=== PATIENT | female | born 1980 | race Caucasian/White ===

== ENCOUNTER 2018-11-27 14:52 | Emergency (ER) | payer SELFPAY ==
[~2018-11-27] VITALS: Ht 162.5 cm; Wt 62.6 kg
[2018-11-27] MEDS ORDERED: ZITHROMAX500 MG PO (15:30)
== END 2018-11-27 15:33 | disposition home or self-care (01) ==
LOC: ED 14:52
DX: J03.90 Acute tonsillitis, unspecified (principal); Z91.018 Allergy to other foods

== ENCOUNTER 2019-01-17 19:51 | Emergency (ER) | payer SELFPAY ==
[~2019-01-17] VITALS: Wt 61.2 kg
[~2019-01-17 19:51] MED LIST: ZITHROMAX500 MG PO
[2019-01-17 20:11] LABS: BASO # 0.1 10*3/uL (0.0-0.1); BASO % 1.1 % (0.0-1.0); EOS # 0.1 10*3/uL (0.0-0.4); HEMATOCRIT 44.5 % (37.0-47.0); HEMOGLOBIN 14.4 g/dl (12.0-16.0); LYMPH # 2.2 10*3/uL (1.3-4.4); LYMPH % 31.3 % (27.0-41.0); MEAN CELL VOLUME 97.8 fl (81.0-99.0); MEAN CORPUSCULAR HGB 31.6 pg (27.0-31.0); MEAN CORPUSCULAR HGB CONC 32.4 g/dl (33.0-37.0); MEAN PLATELET VOLUME 9.3 fl (9.6-12.3); MONO # 0.7 10*3/uL (0.1-1.0); MONO % 10.2 % (3.0-9.0); NEUT # 3.9 10*3/uL (2.3-7.9); NEUT % 56.3 % (47.0-73.0); PLATELET COUNT AUTOMATED 308 10*3/uL (130-400); RED BLOOD COUNT 4.55 10*6/uL (4.10-5.10); RED CELL DISTRI WIDTH 13.8 % (0-14.5)
[2019-01-17 20:28] LABS: ALBUMIN 3.6 gm/dl (3.1-4.5); BUN 5 mg/dl (7-24); CHLORIDE 108 mmol/L (98-107); POTASSIUM 3.7 mmol/L (3.5-5.1); SGOT/AST 12 IU/L (3-35); SGPT/ALT 16 U/L (12-78); SODIUM 139 mmol/L (136-145)
[2019-01-17 20:30] LABS: ALKALINE PHOSPHATASE 66 U/L (45-117); TOTAL PROTEIN 7.5 gm/dL (6.4-8.2)
[2019-01-17 20:34] LABS: ACETAMINOPHEN (TYLENOL) < 5.0 ug/ml (10-30)
[2019-01-17 20:38] LABS: BILIRUBIN NEGATIVE (NEGATIVE); BLOOD TRACE-LYSED (NEGATIVE); CLARITY CLEAR (CLEAR); COLOR YELLOW (YELLOW); GLUCOSE NEGATIVE (NEGATIVE); KETONE NEGATIVE (NEGATIVE); LEUKO ESTERASE TRACE (NEGATIVE); NITRITE NEGATIVE (NEGATIVE); PH 5.5 (5.0-9.0); UROBILINOGEN 0.2 E.U./dl (0.2-1.0)
[2019-01-17 20:47] LABS: URINE AMPHETAMINES > 1000 (1000ng/ml); URINE BARBITURATES < 200 (200ng/ml); URINE BENZODIAZEPINES < 200 (200ng/ml); URINE CANNABINOIDS (THC) < 50 (50ng/ml); URINE COCAINE < 300 (300ng/ml); URINE METHADONE < 300 (300ng/ml); URINE OPIATES < 300 (300ng/ml)
[2019-01-17 20:49] LABS: URINE PHENCYCLIDINE < 25 (25ng/ml)
[2019-01-17 20:50] LABS: WBC 0-2 wbc/hpf (0-5)
[2019-01-17 20:51] LABS: BACTERIA 3+; EPITHELIAL CELLS 16-20; RBC 0-2 rbc/hpf (0-2)
== END 2019-01-18 08:45 | disposition home or self-care (01) ==
LOC: ED 19:51
PROVIDERS: Emergency Medicine Emergency Medical Services
DX: F43.21 Adjustment disorder with depressed mood (principal)

== ENCOUNTER 2024-02-13 16:55 | Emergency (ER) | payer OTHER ==
[~2024-02-13] VITALS: Ht 162.5 cm; Wt 56.7 kg
[2024-02-13] MEDS ORDERED: MELOXICAM15 MG PO (19:35)
[2024-02-13] MEDS ORDERED: ACETAMINOPHEN 325 MG TAB PO ONE (19:40)
== END 2024-02-13 20:11 | disposition home or self-care (01) ==
LOC: ED 16:55
DX: S99.911A Unspecified injury of right ankle, initial encounter (principal); X58.XXXA Exposure to other specified factors, initial encounter; Y93.89 Activity, other specified; Y92.009 Unspecified place in unspecified non-institutional (private) residence as the place of occurrence of the external cause; Y99.8 Other external cause status

== ENCOUNTER → 2025-03-03 | Outpatient (CLI) | payer MEDICAID ==
[~2025-03-03] MED LIST changes: +MELOXICAM15 MG PO
== END | disposition home or self-care (01) ==
LOC: RAD 11:54
PROVIDERS: ATTEND Nurse Practitioner Family
DX: Z22.7 Latent tuberculosis (principal)

== ENCOUNTER → 2025-03-25 | Outpatient (CLI) | payer MEDICAID ==
[2025-03-25 15:32] LABS: SGPT/ALT 8 U/L (5-49)
== END | disposition home or self-care (01) ==
LOC: LAB 14:45
PROVIDERS: ATTEND Internal Medicine Critical Care Medicine
DX: Z79.899 Other long term (current) drug therapy (principal)